=== PATIENT | male | born 1995 | race African-American/Black ===

== ENCOUNTER 2025-02-18 13:55 | Emergency (ER) | payer OTHER ==
[~2025-02-18] VITALS: Ht 172.7 cm; Wt 78.1 kg
[2025-02-18] MEDS ORDERED: EXCETAB32 PO (14:17)
[2025-02-18] MEDS: NS (Normal Saline) 0.9% 1,000 ML IV ONE (15:43)
[2025-02-18] MEDS: ONDANSETRON 4MG 2ML VIAL IV ONE (15:45)
[2025-02-18] MEDS: ACETAMINOPHEN 325 MG TAB PO ONE (15:47)
[2025-02-18 15:52] LABS: BASO # 0.0 10^3/uL (0.0-0.2); BASO % 0.6 % (0.0-1.0); EOS # 0.1 10^3/uL (0.0-0.5); EOS % 1.3 % (0.0-3.0); LYMPH # 0.9 10^3/uL (1.5-5.0); LYMPH % 16.7 % (24.0-44.0); MONO # 0.5 10^3/uL (0.0-0.8); MONO % 9.9 % (2.0-8.0); NEUTROPHILS # 3.8 10^3/uL (1.5-8.5); NEUTROPHILS % 71.3 % (36.0-66.0); PLATELET COUNT, AUTOMATED 314 10^3/uL (150-450)
[2025-02-18 16:18] LABS: CALCIUM LEVEL 9.5 MG/DL (8.5-10.1); CARBON DIOXIDE LEVEL 24 MMOL/L (20-31); CHLORIDE LEVEL 99 MMOL/L (98-107); CK-MB VALUE MASS 1.3 NG/ML (<3.6); CPK CREATINE PHOSPHOKINASE 225 U/L (46-171); CREATININE FOR GFR 0.84 MG/DL (0.70-1.30); GLOMERULAR FILTRATION RATE > 90.0 (>60); MB/CK RELATIVE INDEX 0.57 (< OR =4); POTASSIUM SERUM 5.6 MMOL/L (3.5-5.1); SODIUM LEVEL 136 MMOL/L (136-145)
[2025-02-18 18:53] LABS: CALCIUM LEVEL 8.8 MG/DL (8.5-10.1); CARBON DIOXIDE LEVEL 23 MMOL/L (20-31); CHLORIDE LEVEL 102 MMOL/L (98-107); CREATININE FOR GFR 0.82 MG/DL (0.70-1.30); GLOMERULAR FILTRATION RATE > 90.0 (>60); POTASSIUM SERUM 4.1 MMOL/L (3.5-5.1); SODIUM LEVEL 136 MMOL/L (136-145)
[2025-02-18 19:30] VITALS: BP 177/102
[2025-02-18 19:32] VITALS: TEMP 99.7; O2SAT 99
[2025-02-19] MEDS ORDERED: ACET-907 PO (21:50)
== END 2025-02-18 19:48 | disposition home or self-care (01) ==
LOC: M ED 14:41
DX: R11.2 Nausea with vomiting, unspecified (principal)
CPT/HCPCS: 80048; 82550; 82553; 84484; 85025; 85379; 93005; 96361; 96374; 99285; J2405

== ENCOUNTER 2025-02-19 17:12 | Inpatient (IN) | payer OTHER ==
[~2025-02-19] VITALS: Ht 172.7 cm; Wt 77.7 kg
[~2025-02-19 17:12] MED LIST: EXCETAB32 PO
[2025-02-19 18:00] LABS: PLATELET COUNT, AUTOMATED 321 10^3/uL (150-450)
[2025-02-19 18:29] LABS: AMPHETAMINES LEVEL URINE NEGATIVE (NEGATIVE); BARBITURATES URINE NEGATIVE (NEGATIVE); BENZODIAZEPINES URINE NEGATIVE (NEGATIVE); CANNABINOIDS URINE NEGATIVE (NEGATIVE); COCAINE METABOLITE URINE NEGATIVE (NEGATIVE); METHADONE URINE NEGATIVE (NEGATIVE); OPIATES URINE NEGATIVE (NEGATIVE); PHENCYCLIDINE URINE NEGATIVE (NEGATIVE)
[2025-02-19 18:32] LABS: ETHYL ALCOHOL (ETHANOL) 0.004 % (0.000-0.010)
[2025-02-19 18:33] LABS: SALICYLATE LEVEL < 3.0 MG/DL (<30)
[2025-02-19 18:36] LABS: ALT/SGPT 19 U/L (7.0-40); AST/SGOT 26 U/L (<34); CALCIUM LEVEL 9.6 MG/DL (8.5-10.1); CARBON DIOXIDE LEVEL 28 MMOL/L (20-31); CHLORIDE LEVEL 101 MMOL/L (98-107); CREATININE FOR GFR 0.93 MG/DL (0.70-1.30); GLOMERULAR FILTRATION RATE > 90.0 (>60); POTASSIUM SERUM 3.7 MMOL/L (3.5-5.1); SODIUM LEVEL 139 MMOL/L (136-145)
[2025-02-19] MEDS: amLODIPine 5 MG TAB PO ONE (20:41)
[2025-02-19] MEDS ORDERED: MAALOX 30 ML SUSP *UDC PO PRN (21:40)
[2025-02-19] MEDS ORDERED: MOM 30 ML SUSPENSION UDC PO PRN (21:40)
[2025-02-19] MEDS ORDERED: HOME MED LIST COMPLETE! XX SCH (21:50)
[2025-02-19] MEDS ORDERED: ACET-907 PO (21:50)
[2025-02-20 02:22] VITALS: BP 132/90; TEMP 98.2; O2SAT 99
[2025-02-20] MEDS: traZODone 50 MG TAB PO PRN (03:33)
[2025-02-20] MEDS: ACETAMINOPHEN 325 MG TAB PO PRN (11:49)
[2025-02-20 11:52] VITALS: BP 138/93; TEMP 98.5; O2SAT 99
[2025-02-20] MEDS: buPROPion **XL** 150 MG TABLET PO SCH (13:23)
[2025-02-20] MEDS: NICOTINE POLACRILEX 2 MG GUM PO PRN (13:24)
[2025-02-20 16:43] VITALS: BP 140/88; TEMP 97.9; O2SAT 100
[2025-02-21 06:33] VITALS: BP 137/66; TEMP 97.4; O2SAT 99
[2025-02-21 15:33] VITALS: BP 141/96; TEMP 98; O2SAT 99
[2025-02-22 06:29] VITALS: BP 149/81; TEMP 99.3; O2SAT 100
[2025-02-22] MEDS: IBUPROFEN 400 MG TAB PO PRN (09:54)
[2025-02-22 14:49] VITALS: BP 143/86; TEMP 98.2; O2SAT 100
[2025-02-23 06:35] VITALS: BP 134/72; TEMP 97.2; O2SAT 100
[2025-02-23 15:14] VITALS: BP 148/92; TEMP 98.7; O2SAT 98
[2025-02-24 06:22] VITALS: BP 122/83; TEMP 97.9; O2SAT 100
[2025-02-24 16:27] VITALS: BP 143/80; TEMP 98.8; O2SAT 100
[2025-02-25 06:23] VITALS: BP 139/69; TEMP 97.5; O2SAT 99
[2025-02-25] MEDS: OLANZapine ORAL DISINTEGRATING TAB 5MG PO PRN (08:44)
[2025-02-25 15:35] VITALS: BP 135/79; TEMP 97.9; O2SAT 100
[2025-02-26 06:43] VITALS: BP 140/86; TEMP 98.2; O2SAT 100
[2025-02-26 16:38] VITALS: BP 144/95; TEMP 98; O2SAT 100
[2025-02-26] MEDS: OLANZapine 5 MG TAB PO SCH (20:12)
[2025-02-27 06:43] VITALS: BP 139/86; TEMP 97.8; O2SAT 100
[2025-02-27] MEDS: buPROPion **XL** 150 MG TABLET PO SCH (08:43)
[2025-02-27 15:03] VITALS: BP 144/89; TEMP 97.7; O2SAT 100
[2025-02-28 06:33] VITALS: BP 164/86; TEMP 98; O2SAT 100
[2025-02-28 15:14] VITALS: BP 168/88; TEMP 98.5; O2SAT 100
[2025-03-01 06:34] VITALS: BP 125/65; TEMP 97.7; O2SAT 99
[2025-03-01] MEDS ORDERED: BUPR150T12 PO (09:14)
[2025-03-01] MEDS ORDERED: OLAN1TAB16 PO (09:14)
[2025-03-01] MEDS ORDERED: TRAZ-252 PO (09:14)
== END 2025-03-01 11:57 | disposition home or self-care (01) | DRG 885 ==
LOC: M ED 17:12 → UNDOADMIN 21:39 → M PSY 21:39 → M ED INP 21:39
PROVIDERS: ADMIT Psychiatry & Neurology Neurology; ATTEND Psychiatry & Neurology Psychiatry
DX: F33.3 Major depressive disorder, recurrent, severe with psychotic symptoms (principal); F90.2 Attention-deficit hyperactivity disorder, combined type; F41.1 Generalized anxiety disorder; F17.290 Nicotine dependence, other tobacco product, uncomplicated; F41.0 Panic disorder [episodic paroxysmal anxiety]; Z91.51 Personal history of suicidal behavior; Z81.8 Family history of other mental and behavioral disorders

== ENCOUNTER 2025-06-07 20:36 | Observation (INO) | payer OTHER ==
[~2025-06-07] VITALS: Ht 172.7 cm; Wt 81.7 kg
[~2025-06-07 20:36] MED LIST changes: +ACET-907 PO; +BUPR150T12 PO; +OLAN1TAB16 PO; +TRAZ-252 PO
[2025-06-07] MEDS: NS (Normal Saline) 0.9% 1,000 ML IV ONE (21:05)
[2025-06-07 21:28] LABS: BASO # 0.0 10^3/uL (0.0-0.2); BASO % 0.2 % (0.0-1.0); EOS # 0.0 10^3/uL (0.0-0.5); EOS % 0.2 % (0.0-3.0); LYMPH # 0.8 10^3/uL (1.5-5.0); LYMPH % 17.0 % (24.0-44.0); MONO # 0.5 10^3/uL (0.0-0.8); MONO % 9.8 % (2.0-8.0); NEUTROPHILS # 3.5 10^3/uL (1.5-8.5); NEUTROPHILS % 72.6 % (36.0-66.0); PLATELET COUNT, AUTOMATED 263 10^3/uL (150-450)
[2025-06-07] MEDS: CHARCOAL ACTIVATED LIQUID 25 GM/120 ML BTL PO ONE (21:50)
[2025-06-07 21:52] LABS: ETHYL ALCOHOL (ETHANOL) < 0.003 % (0.000-0.010)
[2025-06-07 21:54] LABS: ALT/SGPT 20 U/L (7.0-40); AST/SGOT 32 U/L (<34); CALCIUM LEVEL 9.5 MG/DL (8.5-10.1); CARBON DIOXIDE LEVEL 28 MMOL/L (20-31); CHLORIDE LEVEL 99 MMOL/L (98-107); CREATININE FOR GFR 0.81 MG/DL (0.70-1.30); GLOMERULAR FILTRATION RATE > 90.0 (>60); POTASSIUM SERUM 3.6 MMOL/L (3.5-5.1); SALICYLATE LEVEL < 3.0 MG/DL (<30); SODIUM LEVEL 137 MMOL/L (136-145)
[2025-06-07 21:56] LABS: CPK CREATINE PHOSPHOKINASE 244 U/L (46-171)
[2025-06-07 23:48] LABS: AMPHETAMINES LEVEL URINE NEGATIVE (NEGATIVE); BARBITURATES URINE NEGATIVE (NEGATIVE); BENZODIAZEPINES URINE NEGATIVE (NEGATIVE); COCAINE METABOLITE URINE NEGATIVE (NEGATIVE)
[2025-06-07 23:49] LABS: CANNABINOIDS URINE NEGATIVE (NEGATIVE); METHADONE URINE NEGATIVE (NEGATIVE); OPIATES URINE NEGATIVE (NEGATIVE); PHENCYCLIDINE URINE NEGATIVE (NEGATIVE)
[2025-06-07] MEDS ORDERED: MOM 30 ML SUSPENSION UDC PO PRN (23:50)
[2025-06-07] MEDS ORDERED: AMLO2.5C6 PO (23:53)
[2025-06-07] MEDS ORDERED: MELA10TA30 PO (23:53)
[2025-06-07] MEDS ORDERED: ONDANSETRON 4MG/2ML VIAL IV PRN (23:55)
[2025-06-07] MEDS ORDERED: HOME MED LIST COMPLETE! XX SCH (23:55)
[2025-06-08] MEDS: NS (Normal Saline) 0.9% 1,000 ML IV SCH (00:06)
[2025-06-08 08:01] LABS: PLATELET COUNT, AUTOMATED 269 10^3/uL (150-450)
[2025-06-08 08:33] LABS: ALT/SGPT 16 U/L (7.0-40); AST/SGOT 23 U/L (<34); CALCIUM LEVEL 8.9 MG/DL (8.5-10.1); CARBON DIOXIDE LEVEL 29 MMOL/L (20-31); CHLORIDE LEVEL 102 MMOL/L (98-107); CREATININE FOR GFR 0.74 MG/DL (0.70-1.30); GLOMERULAR FILTRATION RATE > 90.0 (>60); MAGNESIUM LEVEL 2.1 MG/DL (1.8-2.4); POTASSIUM SERUM 3.7 MMOL/L (3.5-5.1); SODIUM LEVEL 137 MMOL/L (136-145)
[2025-06-08] MEDS: ENOXAPARIN 40 MG/0.4 ML SYRINGE (J1650 PER 10MG) SC SCH (09:00)
[2025-06-08 10:19] VITALS: BP 135/81; TEMP 99; O2SAT 98
[2025-06-08] MEDS: ACETAMINOPHEN 325 MG TAB PO PRN (10:50)
[2025-06-08] MEDS: IBUPROFEN 400 MG TAB PO ONE (12:14)
[2025-06-08 14:00] VITALS: BP 157/71; TEMP 97.9; O2SAT 98
[2025-06-08 16:00] VITALS: BP 138/82; TEMP 98.5; O2SAT 100
[2025-06-08 20:45] VITALS: BP 155/84; TEMP 98.1; O2SAT 99
[2025-06-09] VITALS: BP 127/80; TEMP 98.7; O2SAT 100
[2025-06-09 05:09] VITALS: BP 146/85; TEMP 98.2; O2SAT 99
[2025-06-09 07:13] LABS: BASO # 0.0 10^3/uL (0.0-0.2); BASO % 0.3 % (0.0-1.0); EOS # 0.1 10^3/uL (0.0-0.5); EOS % 2.3 % (0.0-3.0); LYMPH # 1.3 10^3/uL (1.5-5.0); LYMPH % 33.1 % (24.0-44.0); MONO # 0.4 10^3/uL (0.0-0.8); MONO % 10.9 % (2.0-8.0); NEUTROPHILS # 2.1 10^3/uL (1.5-8.5); NEUTROPHILS % 53.1 % (36.0-66.0); PLATELET COUNT, AUTOMATED 241 10^3/uL (150-450)
[2025-06-09 07:43] LABS: ALT/SGPT 14 U/L (7.0-40); AST/SGOT 19 U/L (<34); CALCIUM LEVEL 8.8 MG/DL (8.5-10.1); CARBON DIOXIDE LEVEL 30 MMOL/L (20-31); CHLORIDE LEVEL 104 MMOL/L (98-107); CREATININE FOR GFR 0.86 MG/DL (0.70-1.30); GLOMERULAR FILTRATION RATE > 90.0 (>60); POTASSIUM SERUM 4.1 MMOL/L (3.5-5.1); SODIUM LEVEL 141 MMOL/L (136-145)
[2025-06-09 08:00] VITALS: BP 149/81; TEMP 99.4; O2SAT 98
[2025-06-09 09:36] VITALS: BP 149/74
[2025-06-09] MEDS: BENAZEPRIL 5 MG TAB PO SCH (09:36)
[2025-06-09] MEDS: NICOTINE POLACRILEX 2 MG GUM PO PRN (10:21)
[2025-06-09 12:05] VITALS: BP 158/83; TEMP 98.7; O2SAT 98
[2025-06-09] MEDS: buPROPion **XL** 150 MG TABLET PO SCH (13:09)
== END 2025-06-09 14:38 ==
LOC: M ED 20:36 → M ED INP 20:37 → M MSPAV 06-08 10:22
PROVIDERS: ADMIT Internal Medicine; ATTEND Internal Medicine
DX: T46.5X2A Poisoning by other antihypertensive drugs, intentional self-harm, initial encounter (principal); I10 Essential (primary) hypertension; Z79.899 Other long term (current) drug therapy; F90.9 Attention-deficit hyperactivity disorder, unspecified type; F41.9 Anxiety disorder, unspecified; F33.2 Major depressive disorder, recurrent severe without psychotic features; Z81.8 Family history of other mental and behavioral disorders

== ENCOUNTER 2025-06-09 13:28 | Inpatient (IN) | payer OTHER ==
[~2025-06-09] VITALS: Ht 172.7 cm; Wt 81.6 kg
[~2025-06-09 13:28] MED LIST changes: +AMLO2.5C6 PO; +MELA10TA30 PO; +buPROPion **XL** 150 MG TABLET PO SCH
[2025-06-09] MEDS ORDERED: MAALOX 30 ML SUSP *UDC PO PRN (14:25)
[2025-06-09] MEDS ORDERED: MOM 30 ML SUSPENSION UDC PO PRN (14:25)
[2025-06-09] MEDS ORDERED: ACETAMINOPHEN 325 MG TAB PO PRN (14:25)
[2025-06-09] MEDS ORDERED: IBUPROFEN 400 MG TAB PO PRN (14:25)
[2025-06-09 14:53] VITALS: BP 143/90; TEMP 98.8; O2SAT 99
[2025-06-10 06:37] VITALS: BP 149/76; TEMP 98.2; O2SAT 100
[2025-06-10] MEDS ORDERED: HOME MED LIST COMPLETE! XX SCH (08:20)
[2025-06-10] MEDS: buPROPion **XL** 150 MG TABLET PO SCH (08:56)
[2025-06-10] MEDS: NICOTINE 21 MG/24 HR 1 EA TRANSDERMAL TD SCH (14:08)
[2025-06-10 15:48] VITALS: BP 145/95; TEMP 97.5; O2SAT 100
[2025-06-10] MEDS: BENAZEPRIL 5 MG TAB PO SCH (18:41)
[2025-06-10] MEDS: OLANZapine 5 MG TAB PO SCH (20:45)
[2025-06-10] MEDS: traZODone 50 MG TAB PO PRN (20:45)
[2025-06-11 06:31] VITALS: BP 150/110; TEMP 97.3; O2SAT 98
[2025-06-11 14:49] VITALS: BP 167/84; TEMP 98.1; O2SAT 99
[2025-06-12 06:12] VITALS: BP 130/77; TEMP 97.8; O2SAT 100
[2025-06-12 09:26] VITALS: BP 162/104
[2025-06-12 15:31] VITALS: BP 164/90; TEMP 97.9; O2SAT 100
[2025-06-13 06:17] VITALS: BP 135/77; TEMP 98.3; O2SAT 99
[2025-06-13] MEDS: OLANZapine ORAL DISINTEGRATING TAB 5MG PO PRN (14:50)
[2025-06-13 15:36] VITALS: BP 171/88; TEMP 98.5; O2SAT 100
[2025-06-14 06:23] VITALS: BP 163/82; TEMP 98.1; O2SAT 100
[2025-06-14 16:43] VITALS: BP 140/82; TEMP 97.9; O2SAT 99
[2025-06-15 06:34] VITALS: BP 146/78; TEMP 97; O2SAT 98
[2025-06-15] MEDS ORDERED: OLAN2.5T53 PO (08:50)
[2025-06-15] MEDS ORDERED: TRAZ-252 PO (08:50)
[2025-06-15] MEDS ORDERED: BUPR150T12 PO (08:50)
[2025-06-15] MEDS ORDERED: OLAN1TAB16 PO (08:50)
[2025-06-15 08:54] VITALS: BP 148/92
[2025-06-15 08:56] VITALS: BP 148/92
== END 2025-06-15 10:30 | disposition home or self-care (01) | DRG 885 ==
LOC: M PSY 14:43
PROVIDERS: ADMIT General Practice; ATTEND Psychiatry & Neurology Psychiatry
DX: F33.3 Major depressive disorder, recurrent, severe with psychotic symptoms (principal); F90.9 Attention-deficit hyperactivity disorder, unspecified type; F41.0 Panic disorder [episodic paroxysmal anxiety]; I10 Essential (primary) hypertension; Z91.51 Personal history of suicidal behavior; Z79.899 Other long term (current) drug therapy; F17.290 Nicotine dependence, other tobacco product, uncomplicated